=== PATIENT | female | born 1960 | race Caucasian/White ===

== ENCOUNTER 2021-04-14 06:06 | Day surgery (SDC) | payer BC ==
[2021-04-14] MEDS ORDERED: Lactated Ringers 1,000 ML IV SCH (06:30)
[2021-04-14] MEDS ORDERED: Versed 2 MG/2 ML Injection ONE (07:23)
[2021-04-14] MEDS ORDERED: DIPRIVAN 200 MG/20 ML IV ONE ×2 (07:23→07:41)
[2021-04-14 08:35] VITALS: BP 128/72; PULSE 75; O2SAT 97
--- NOTE | 2021-04-14 13:01 | OP ---
SURGERY DATE/TIME: 04/14/2021 0726 PREOPERATIVE DIAGNOSIS: Screening exam. POSTOPERATIVE DIAGNOSIS: Mild sigmoid diverticulosis otherwise normal colon. PROCEDURE: Colonoscopy. SURGEON: Dr. Zazueta. ANESTHESIA: MAC. Medications given by anesthesia department. HISTORY: The patient is a 61-year-old white female presenting now for screening colonoscopy. The patient was felt the need to have endoscopic evaluation. She was appraised of the risks of the procedure including the risk of perforation, phlebitis, untoward reaction to medication, bleeding and missed lesions. The patient verbalized her understanding and desired to have the procedure performed. DESCRIPTION OF PROCEDURE: The patient was given the medications by the anesthesia department. She had continuous pulse oximetry, ECG monitoring, intermittent blood pressure monitoring during the examination. She was placed in the left lateral decubitus position. A digital rectal examination was performed and revealed normal anal sphincter tone and no masses. The flexible Olympus pediatric colonoscope was used to intubate the rectum. A view of the colon was developed sequentially to the cecum. Upon insertion and withdrawal, including a retroflex view in the rectum was noted some mild sigmoid diverticula otherwise no mucosal lesions were encountered. The scope was removed from the patient who tolerated the procedure well and was sent back to OP recovery in good condition. The prep was noted to be fair to good.
== END 2021-04-14 08:45 | disposition home or self-care (01) ==
LOC: SDC 06:06
PROVIDERS: ATTEND Family Medicine
DX: Z12.11 Encounter for screening for malignant neoplasm of colon (principal); K57.30 Diverticulosis of large intestine without perforation or abscess without bleeding
CPT/HCPCS: J2250; J2704

== ENCOUNTER 2022-05-10 07:01 | Emergency (ER) | payer BC ==
[2022-05-10] MEDS ORDERED: BENADRYL 50 MG/ML IV ONE ×2 (07:26→08:44)
[2022-05-10] MEDS ORDERED: Pepcid 20 MG VIAL IV ONE ×2 (07:26→07:30)
[2022-05-10] MEDS ORDERED: solu-MEDROL 125 MG, Sterile H2O 10 ml 2 ML IV ONE ×2 (07:26)
[2022-05-10] MEDS ORDERED: solu-MEDROL ONE (07:30)
[2022-05-10] MEDS ORDERED: BENADRYL 50 MG/ML ONE ×2 (07:30→08:45)
[2022-05-10] MEDS ORDERED: Sterile H2O 10 ml IJ ONE (07:30)
[2022-05-10] MEDS ORDERED: Zofran 4 MG/2 ML VIAL IV ONE (07:41)
[2022-05-10] MEDS ORDERED: Zofran 4 MG/2 ML VIAL ONE (07:43)
[2022-05-10 08:07] VITALS: O2SAT 95
[2022-05-10 09:37] VITALS: BP 123/59; PULSE 80
--- NOTE | 2022-05-10 09:52 | ERPHSYRPT ---
- History of Present Illness Time Seen by Provider: 05/10/22 07:43 Source: patient Exam Limitations: no limitations Patient Subjective Stated Complaint: Pt took Ozempic yesterday morning for the first time and then Quviviq last night for the first time and she woke this mo rning with a scattered rash on her arms chest and back and her throat itching and having difficulty breathing Triage Nursing Assessment: Pt brought to the ER by her , hypertensive, denies pain, lips have began swelling and are tingling since coming to the ER, no wheezing heard, pulses normal, skin flushed, scattered rash on body, nauseous Physician History: 62 years old female who was recently started on Ozempic and Quviviq woke up this morning with itching and rash over arms with some scratchiness of her throat and subjective feeling of difficulty breathing. Patient is not hypoxic. Denies any choking sensation. No difficulty swallowing. Allergies/Adverse Reactions: azithromycin [From Zithromax Z-Kem] Allergy (Verified 05/10/22 07:42) daridorexant [From Quviviq] Allergy (Verified 05/10/22 07:42) doxycycline Allergy (Verified 05/10/22 07:42) morphine Allergy (Verified 05/10/22 07:42) Rash semaglutide [From Ozempic] Allergy (Verified 05/10/22 07:42) spironolactone Allergy (Verified 05/10/22 07:42) Home Medications: Fexofenadine/Pseudoephedrine [Merry-D 12 Hour Tablet] 180 mg PO DAILY 09/21/14 [History] Fluticasone Propionate [Flonase NASAL] 16 gm NS HS 09/21/14 [History] ALPRAZolam 1 MG [Xanax 1 mg] 0.25 mg PO HS PRN PRN 04/20/19 [History] Metformin HCl 500 mg [Glucophage 500 MG] 500 mg PO BID 04/20/19 [History] Multivitamin [Multivitamins] 1 each PO DAILY 04/20/19 [History] Progesterone, Micronized [Progesterone] 100 mg PO DAILY 04/20/19 [History] Albuterol Sulfate [Albuterol Sulfate Hfa] 8.5 gm IH DAILY PRN 04/13/21 [History] L.acidoph,Paracasei, B.lactis [Probiotic] 1 each PO DAILY 04/13/21 [History] Mecobalamin [B12 Active] 1 mg IM .. 04/13/21 [History] Naltrexone HCl 4.5 gm PO DAILY 04/13/21 [History] Prasterone (Dhea) [Dhea 25] 25 mg PO DAILY 04/13/21 [History] Testosterone Undecanoate [Aveed] 750 mg TOP DAILY 04/13/21 [History] Thyroid,Pork [Button Spindler Thyroid] 120 mg PO DAILY 04/13/21 [History] prednisoLONE [Millipred] 10 mg PO DAILY 04/13/21 [History] Temazepam [Restoril] 7.5 mg PO DAILY 04/14/21 [History] Venlafaxine HCl 225 mg PO DAILY 04/14/21 [History] Furosemide 20 mg [Lasix 20 mg] 20 mg PO DAILY 05/10/22 [History] Potassium Chloride 10 meq PO DAILY 05/10/22 [History] Hx Influenza Vaccination/Date Given: Yes Hx Pneumococcal Vaccination/Date Given: Yes Travel Risk - International Travel Have you traveled outside of the country in past 3 weeks: No - Coronavirus Screening Are you exhibiting any of the following symptoms?: No Close contact with a COVID-19 positive Pt in past 14-21 Days: No - Vaccine Status Have you recieved a Covid-19 vaccination: 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 - Vaccination Dates Date of 2cond Vaccination (if applicable): 2020 - Review of Systems Constitutional: No Symptoms Eyes: No Symptoms Ears, Nose, & Throat: Throat Swelling Respiratory: No Symptoms Cardiac: No Symptoms Abdominal/Gastrointestinal: No Symptoms Genitourinary Symptoms: No Symptoms Musculoskeletal: No Symptoms Skin: Rash, Skin Lesions Neurological: No Symptoms Endocrine: No Symptoms - Past Medical History Pertinent Past Medical History: Yes Neurological History: No Pertinent History ENT History: Cataracts Cardiac History: No Pertinent History Respiratory History: Asthma, Sleep Apnea Endocrine Medical History: Hypothyroidism Musculoskeletal History: Arthritis GI Medical History: Diverticulitis, GERD History: No Pertinent History Psycho-Social History: Anxiety, Depression Female Reproductive Disorders: No Pertinent History - Past Surgical History Past Surgical History: Yes Neuro Surgical History: No Pertinent History Cardiac: No Pertinent History Respiratory: No Pertinent History Gastrointestinal: No Pertinent History Genitourinary: No Pertinent History Musculoskeletal: No Pertinent History, Joint Replacement Female Surgical History: No Pertinent History Other Surgical History: lasix, lap band, ,T&A, lap band removed, eye lid surgery, rt. knee replacement - Social History Smoking Status: Former smoker How long have you smoked: 3 months Exposure to second hand smoke: No Drug Use: none Patient Lives Alone: No - Nursing Vital Signs Nursing Vital Signs: Initial Vital Signs Temperature 97.9 F 05/10/22 07:12 Pulse Rate 94 H 05/10/22 07:12 Respiratory Rate 19 05/10/22 07:12 Blood Pressure 156/68 05/10/22 07:12 O2 Sat by Pulse Oximetry 97 05/10/22 07:12 Pain Scale Pain Intensity 0 - Physical Exam General Appearance: no apparent distress, alert Eye Exam: PERRL/EOMI Ears, Nose, Throat Exam: normal ENT inspection, TMs normal, pharynx normal, moist mucous membranes Neck Exam: normal inspection, non-tender, supple, full range of motion Respiratory Exam: normal breath sounds, lungs clear Cardiovascular Exam: regular rate/rhythm, normal heart sounds Back Exam: normal inspection Extremity Exam: normal range of motion, other (Mild swelling and discoloration of right lower extremity with itch rene) Neurologic Exam: alert, oriented x 3, cooperative Skin Exam: normal color SpO2 Interpretation: normal SpO2: 95 O2 Delivery: Room Air Ordered Tests: Medication Summary Discontinued Medications Generic Name Dose Route Start Last Admin Trade Name Freq PRN Reason Stop Dose Admin Methylprednisolone Sodium 0 mg 05/10/22 07:26 05/10/22 07:32 Succinate 125 mg/ Sterile IV 05/10/22 07:27 125 mg Water 2 ml STAT ONE Administration Diphenhydramine HCl 50 mg 05/10/22 07:26 05/10/22 07:33 Diphenhydramine Hcl 50 Mg/Ml Vial IV 05/10/22 07:27 50 mg STAT ONE Administration Diphenhydramine HCl Confirm 05/10/22 07:30 Diphenhydramine Hcl 50 Mg/Ml Vial Administered 05/10/22 07:31 Dose 50 mg .ROUTE .STK-MED ONE Diphenhydramine HCl 25 mg 05/10/22 08:44 05/10/22 08:46 Diphenhydramine Hcl 50 Mg/Ml Vial IV 05/10/22 08:45 25 mg STAT ONE Administration Diphenhydramine HCl Confirm 05/10/22 08:45 Diphenhydramine Hcl 50 Mg/Ml Vial Administered 05/10/22 08:46 Dose 50 mg .ROUTE .STK-MED ONE Famotidine 40 mg 05/10/22 07:26 05/10/22 07:33 Famotidine 20 Mg/1 Vial IV 05/10/22 07:27 40 mg STAT ONE Administration Famotidine Confirm 05/10/22 07:30 Famotidine 20 Mg/1 Vial Administered 05/10/22 07:31 Dose 40 mg IV .STK-MED ONE Methylprednisolone Sodium Succinate Confirm 05/10/22 07:30 Methylprednis Sod Succ 125 Mg/2 Ml Vial Administered 05/10/22 07:31 Dose 125 mg .ROUTE .STK-MED ONE Ondansetron HCl 4 mg 05/10/22 07:41 05/10/22 07:43 Ondansetron Hcl 4 Mg/2 Ml Vial IV 05/10/22 07:42 4 mg STAT ONE Administration Ondansetron HCl Confirm 05/10/22 07:43 Ondansetron Hcl 4 Mg/2 Ml Vial Administered 05/10/22 07:44 Dose 4 mg .ROUTE .STK-MED ONE Sterile Water Confirm 05/10/22 07:30 Water For Injection,Sterile 10 Ml Vial Administered 05/10/22 07:31 Dose 10 ml IJ .STK-MED ONE - Progress Progress: improved, re-examined Progress Note: 05/10/22 09:44 62 years old is evaluated in the ER with allergic reaction from Ozempic and weekly started yesterday. Patient has been feeling itching all over and some scratchiness in the throat with mild difficulty breathing but no swallowing. This has been going on since last night and progressively worsening. Patient is not in any distress on presentation in the ER. She is given Solu-Medrol, Benadryl, Pepcid, on reevaluation her symptoms improved. She is not having any more itching or scratchiness in the throat or choking sensation. No difficulty breathing. Lungs bilateral clear to auscultation throughout stay in the ER. We will give her Pepcid Benadryl and prednisone to go home and recommended follow- up/discussion with primary care about continuing Ozempic and Qeuviq. Discussed signs symptoms of worsening needing return to ER which she seems understanding. Stable for discharge. Counseled pt/family regarding: diagnosis, need for follow-up - Departure Departure Disposition: Home Clinical Impression: Allergic reaction Condition: Stable Critical Care Time: No Referrals: JANEL WALLER [Primary Care Provider] - Follow up/PCP as directed (1-2 days for reevaluation) Instructions: Adverse Drug Reactions, Adult (DC) Additional Instructions: Talk to your primary care physician about Ozempic and quviviq before taking the next dose. Return to ER for worsening itching, difficulty breathing, choking sensations etc. Prescriptions: Diphenhydramine HCl 25 mg [Benadryl 25 mg Capsule] 25 mg PO Q4H PRN PRN #20 cap PRN Reason: Allergies Prednisone 20 mg [Deltasone 20 mg] 40 mg PO DAILY 5 Days #10 tablet Famotidine 20 mg [Pepcid 20 MG] 20 mg PO BID #10 tablet
== END 2022-05-10 10:09 | disposition home or self-care (01) ==
LOC: ED 07:01
DX: L27.0 Generalized skin eruption due to drugs and medicaments taken internally (principal); T50.995A Adverse effect of other drugs, medicaments and biological substances, initial encounter; R06.02 Shortness of breath; Z79.84 Long term (current) use of oral hypoglycemic drugs; Z79.899 Other long term (current) drug therapy; Z79.52 Long term (current) use of systemic steroids
CPT/HCPCS: 96374; 96375; 96376; 99284; J1200; J2405; J2930